=== PATIENT | female | born 1960 | race Caucasian/White ===

== ENCOUNTER 2017-04-26 08:09 | Emergency (ER) | payer SELFPAY ==
[~2017-04-26] VITALS: Ht 170.2 cm; Wt 86.2 kg
[2017-04-26 08:30] VITALS: BP 105/73
[2017-04-26] MEDS ORDERED: HYDROcodone/APAP 5/325MG 1 TAB TABLET PO ONE (08:30)
[2017-04-26] MEDS ORDERED: LIDOCAINE 1% / SOD BICARB 8.4% 20 ML VIAL. IJ ONE (08:30)
[2017-04-26] MEDS ORDERED: LIDOCAINE/EPI/TETRACAINE TOPICAL GEL 3 ML. TP ONE (08:30)
[2017-04-26] MEDS ORDERED: DIPHTH,PERTUSS(ACELL),TET TOX 0.5 ML DISP.SYRIN. VAX IM ONE (08:30)
--- NOTE | 2017-04-26 08:31 | PHYS DOC ---
Adult General Chief Complaint Chief Complaint: ANIMAL BITE HPI HPI Patient is a 56 year old female who presents with dog bite to the left antecubital joint and dorsal elbow. Patient states she got bit by a stray pit bull today. Review of Systems Review of Systems Constitutional: Denies fever or chills [] Eyes: Denies change in visual acuity, redness, or eye pain [] HENT: Denies nasal congestion or sore throat [] Respiratory: Denies cough or shortness of breath [] Cardiovascular: No additional information not addressed in HPI [] GI: Denies abdominal pain, nausea, vomiting, bloody stools or diarrhea [] : Denies dysuria or hematuria [] Musculoskeletal: Denies back pain or joint pain [] Integument: dog bite to the left antecubital joint and dorsal elbow Neurologic: Denies headache, focal weakness or sensory changes [] Endocrine: Denies polyuria or polydipsia [] Current Medications Current Medications Current Medications Medications (Trade) Dose Ordered Sig/Ramirez Start Time Stop Time Status Last Admin Dose Admin Acetaminophen/ Hydrocodone Bitart (Lortab 5/325) 1 tab 1X ONCE 04/26/17 08:30 04/26/17 08:35 DC 04/26/17 08:39 1 TAB Diphtheria/ Tetanus/Acell Pertussis (Boostrix) 0.5 ml ONCE ONCE 04/26/17 08:30 04/26/17 08:35 DC 04/26/17 08:40 0.5 ML Lidocaine/ Epinephrine (Let Topical) 3 ml 1X ONCE 04/26/17 08:30 04/26/17 08:35 DC 04/26/17 08:39 3 ML Lidocaine/Sodium Bicarbonate (Buffered Lidocaine 1%) 20 ml 1X ONCE 04/26/17 08:30 04/26/17 08:35 DC 04/26/17 08:40 20 ML Allergies Allergies Allergies Coded Allergies Type Severity Reaction Last Updated Verified No Known Drug Allergies 04/26/17 No Physical Exam Physical Exam Constitutional: Well developed, well nourished, no acute distress, non-toxic appearance. [] Skin: Left antecubital joint with a dog bite laceration approximately 4 x 3 cm x 3 cm deep there is a one cm laceration next to it. There are other small multiple bite motta on the elbow. Neurovascular exam intact to the left upper extremity. Extremities: No tenderness, no cyanosis, no clubbing, ROM intact, no edema. [] Neurologic: Alert and oriented X 3, normal motor function, normal sensory function, no focal deficits noted. [] Psychologic: Affect normal, judgement normal, mood normal. [] Current Patient Data Vital Signs Vital Signs Date Time Temp Pulse Resp B/P (MAP) Pulse Ox O2 Delivery O2 Flow Rate FiO2 04/26/17 08:39 16 96 Room Air 04/26/17 08:30 98.2 71 98.2 EKG EKG [] Radiology/Procedures Radiology/Procedures Indication: Left AC lacerations Procedure: The patient was placed in the appropriate position and anesthesia around the laceration was let solution then later buffered lidocaine. The lacerations were explored for foreign objects, small amount of black debris were removed from the large laceration. The area was cleaned with approximately 500 ML of normal saline and Betadine.The 4 cm laceration was closed as follows. Integument laceration was closed with 2 loose stitches using 4. 0 Vicryl, external laceration was closed with 8 loose stitches using 3. 0 Ethilon. The 1 cm laceration adjacent to the 4 cm laceration was closed with 3 interrupted sutures loosely using 3. 0 Ethilon. Both wounds were covered with nonstick dressing. PROCEDURE: ELBOW LEFT 3V Left elbow, 3 views, 04/26/2017: History: Dog bite, laceration No fracture or dislocation is identified. There is mild spurring at the elbow. There are streaky gas collections in the soft tissues laterally compatible with the history of penetrating trauma. IMPRESSION: No acute bony abnormality is detected. DICTATED and SIGNED BY: CATHY SANDHU MD DATE: 04/26/17 0846 CC: GWENDOLYN WINKLER APRN Course & Med Decision Making Course & Med Decision Making Pertinent Labs and Imaging studies reviewed. (See chart for details) Patient is a dog bites to the left elbow worse on the left antecubital joint that needs to be sutured. Left elbow x-rays interpreted by radiologist 3 views were negative for any acute findings. Patient's tetanus is updated. Her lacerations were cleaned thoroughly and closed loosely as noted in procedures. She is to have the stitches removed in 3-5 days. Discharged with Augmentin. Provided follow-up instructions and discharged in stable condition. Dragon Disclaimer Dragon Disclaimer This electronic medical record was generated, in whole or in part, using a voice recognition dictation system. Departure Departure Impression: Primary Impression: Dog bite of left elbow Disposition: 01 HOME, SELF-CARE Condition: STABLE Patient Instructions: Animal Bite Additional Instructions: You have dog bites to the left upper extremity. Keep the area clean and dry. Apply Neosporin to the area twice a day. Keep it covered if draining. Have the sutures removed in the next 3-5 days. Ensure you complete your oral antibiotics. Monitor the area for signs and symptoms of infection including but not limited to increased redness to the area, uncontrolled drainage/yellow drainage from the area, return to the ED see a doctor if they occur. Scripts Acetaminophen With Codeine (TYLENOL WITH CODEINE #3 TABLET) 1 Each Tablet 1 TAB PO PRN Q6HRS Y for PAIN, #30 TAB Prov: GWENDOLYN WINKLER APRN 04/26/17 Amoxicillin/Potassium Clav (AUGMENTIN 875-125 TABLET) 1 Each Tablet 1 TAB PO BID, #20 TAB Prov: GWENDOLYN WINKLER APRN 04/26/17 Problem Qualifiers Primary Impression: Dog bite of left elbow Encounter type: initial encounter Qualified Codes: S51.052A - Open bite, left elbow, initial encounter; W54.0XXA - Bitten by dog, initial encounter GWENDOLYN WINKLER APRN Apr 26, 2017 08:31
--- NOTE | 2017-04-26 08:50 | RAD ---
Left elbow, 3 views, 04/26/2017: History: Dog bite, laceration No fracture or dislocation is identified. There is mild spurring at the elbow. There are streaky gas collections in the soft tissues laterally compatible with the history of penetrating trauma. IMPRESSION: No acute bony abnormality is detected.
[2017-04-26] MEDS ORDERED: ACET-704 PO (09:37)
[2017-04-26] MEDS ORDERED: AMOX1TAB61 PO (09:37)
== END 2017-04-26 09:40 | disposition home or self-care (01) ==
LOC: ER 08:09
DX: S51.052A Open bite, left elbow, initial encounter (principal); W54.0XXA Bitten by dog, initial encounter; Y93.89 Activity, other specified; Y99.8 Other external cause status; Y92.89 Other specified places as the place of occurrence of the external cause
CPT/HCPCS: 12032; 73080; 90471; 90715; 99284-25

== ENCOUNTER 2017-04-28 18:37 | Emergency (ER) | payer SELFPAY ==
[~2017-04-28] VITALS: Ht 170.2 cm; Wt 86.2 kg
[~2017-04-28 18:37] MED LIST: ACET-704 PO; AMOX1TAB61 PO
[2017-04-28 18:55] VITALS: BP 121/85
[2017-04-28] MEDS ORDERED: NAPR500T PO (19:05)
[2017-04-28] MEDS ORDERED: CLIN300C8 PO (19:05)
--- NOTE | 2017-04-28 19:06 | PHYS DOC ---
Past Medical History Past Medical History: Other Additional Past Medical Histor: BACK PAIN Past Surgical History: Hysterectomy Alcohol Use: Rarely Drug Use: None Adult General Chief Complaint Chief Complaint: WOUND CHECK [facility] HPI Patient is a 56 year old female [facility] emergency department with complaints of infection of her wound. She was evaluated in the emergency department 3 days ago after she was bitten by a pit bull. Patient had sutures placed at that time. She was placed on Augmentin. She states that over the last 3 days the wound has had increasing redness. She's had no fever. Review of Systems Review of Systems Constitutional: Denies fever or chills [] Eyes: Denies change in visual acuity, redness, or eye pain [] HENT: Denies nasal congestion or sore throat [] Respiratory: Denies cough or shortness of breath [] Cardiovascular: No additional information not addressed in HPI [] GI: Denies abdominal pain, nausea, vomiting, bloody stools or diarrhea [] : Denies dysuria or hematuria [] Musculoskeletal: Denies back pain or joint pain [] Integument: Laceration, previously repaired, erythema Neurologic: Denies headache, focal weakness or sensory changes [] Endocrine: Denies polyuria or polydipsia [] Allergies Allergies Allergies Coded Allergies Type Severity Reaction Last Updated Verified No Known Drug Allergies 04/26/17 No Physical Exam Physical Exam Constitutional: Well developed, well nourished, no acute distress, non-toxic appearance. [] Neck: Normal range of motion, no tenderness, supple, no lymphadenopathy Cardiovascular:Heart rate regular rhythm, no murmur [] Lungs & Thorax: Bilateral breath sounds clear to auscultation [] Skin: Warm, dry, left upper extremity, medial small forearm, 2 sutured lines, 10 cm surrounding erythema, 3 cm of induration. There is no lymphangitis. Patient has no axillary lymphadenopathy. Extremities: No tenderness, no cyanosis, no clubbing, ROM intact, no edema, Neurovascular intact distally. [] Neurologic: Alert and oriented X 3, normal motor function, normal sensory function, no focal deficits noted. [] Psychologic: Affect normal, judgement normal, mood normal. [] Current Patient Data Vital Signs Vital Signs Date Time Temp Pulse Resp B/P (MAP) Pulse Ox O2 Delivery O2 Flow Rate FiO2 04/28/17 18:55 98.9 75 16 97 Room Air 98.9 EKG EKG [] Radiology/Procedures Radiology/Procedures [] Course & Med Decision Making Course & Med Decision Making Wound edges were tightly approximated, sutures removed this visit today. It was no gaping of the wound borders after suture removed. Cleansed with Betadine. Band-Aid applied. Should the wound developed an abscess, will be allowed to drain. Pertinent Labs and Imaging studies reviewed. (See chart for details) [] Dragon Disclaimer Dragon Disclaimer This electronic medical record was generated, in whole or in part, using a voice recognition dictation system. Departure Departure Impression: Primary Impression: Cellulitis Disposition: HOME, SELF-CARE Condition: STABLE Referrals: NO PCP (PCP) Patient Instructions: Sutured Wound Care Additional Instructions: Continue Augmentin. Begin the clindamycin today. Return to the emergency department for new symptoms concerns or worsening of current condition. Scripts Naproxen (NAPROSYN) 500 Mg Tablet 500 MG PO BID, #20 TAB Prov: CARLITO PICKENS APRN 04/28/17 Clindamycin Hcl (CLINDAMYCIN HCL) 300 Mg Capsule 1 CAP PO TID, #21 CAP Prov: CARLITO PICKENS APRN 04/28/17 Problem Qualifiers Primary Impression: Cellulitis Site of cellulitis: extremity Site of cellulitis of extremity: upper extremity Laterality: left Qualified Codes: L03.114 - Cellulitis of left upper limb CARLITO PICKENS APRN Apr 28, 2017 19:06
== END 2017-04-28 19:25 | disposition home or self-care (01) ==
LOC: ER 18:37
DX: L03.114 Cellulitis of left upper limb (principal); Z90.710 Acquired absence of both cervix and uterus
CPT/HCPCS: 99283